=== PATIENT | female | born 1980 | race American Indian/Alaskan Native ===

== ENCOUNTER 2021-03-27 08:13 | Outpatient (CLI) | payer BC ==
--- NOTE | 2021-03-27 09:58 | Mammography Report ---
DIGITAL SCREENING MAMMOGRAM WITH TOMOSYNTHESIS WITH CAD, 03/27/2021 CLINICAL INFORMATION / INDICATION: Routine Screening Mammography. TECHNIQUE: Digital bilateral 2D and 3D mammography with tomosynthesis was obtained in the craniocaud al and mediolateral oblique projections. Computer-Aided Detection (CAD) analysis was used for interp retation of this study. COMPARISON: None available. FINDINGS: Breast Density: There are scattered areas of fibroglandular density. No dominant mass, suspicious calcifications, or architectural distortion in the right breast. An indeterminate nodular density is seen anteriorly in the left breast 1:00 position measuring 1.1 x 1.1 cm. No other significant abnormality of the left breast. IMPRESSION: Indeterminate left breast nodular density. A limited left breast ultrasound and possible diagnostic left mammogram with spot compression views is recommended for further evaluation. Follow up recommendation: Ultrasound BI-RADS Category 0: Incomplete. Needs additional imaging evaluation and/or prior mammograms for vanessa rison. A "normal" or negative report should not discourage follow up or biopsy of a clinically significant f inding. A written summary of these findings will be mailed to the patient. The patient will be entered into a mammography reporting system which will generate a reminder letter for the patient's next appointmen t at the appropriate interval. The [employer] recommends yearly mammograms starting at age 40 and continuing as l man as a woman is in good health. Breast MRI is recommended for women with an approximate 20-25% or greater lifetime risk of breast cancer, including women with a strong family history of breast or ova debo cancer or who have been treated for Hodgkin's disease. Signer Name: Nitin Castaneda MD Signed: 03/27/2021 9:53 AM Workstation Name: [id number]
== END 2021-03-27 08:14 | disposition home or self-care (01) ==
LOC: SPVWC 08:13
PROVIDERS: ATTEND Advanced Practice Midwife
DX: Z12.31 Encounter for screening mammogram for malignant neoplasm of breast (principal); N64.89 Other specified disorders of breast
CPT/HCPCS: 77063; 77067

== ENCOUNTER 2021-04-24 09:17 | Outpatient (CLI) | payer BC ==
--- NOTE | 2021-04-24 11:39 | Ultrasound Report ---
ULTRASOUND BREAST LEFT LIMITED, 04/24/2021 CLINICAL INFORMATION / INDICATION: Abnormal screening mammogram. Screening recall of the left breast for nodular density. TECHNIQUE: Targeted ultrasound evaluation was performed of the area of interest. COMPARISON: Screening mammogram, 03/27/2021 FINDINGS: Sonographic evaluation of the left breast at the 12:00 position 6 cm from the nipple demonstrates a h ypoechoic solid mass with indistinct margins measuring 0.9 x 0.8 cm. There is no significant associat ed vascularity. This corresponds to the density seen on the recent mammogram. Sonographic evaluation of the left axilla demonstrates a single lymph node with a grossly normal morp hology. IMPRESSION: 1. Solid left breast mass as described at the 12:00 position which is moderately suspicious for leticia ritter. Surgical consultation and ultrasound-guided biopsy are recommended. Follow up recommendation: Biopsy BI-RADS Category 4: Suspicious for Malignancy. A normal or "negative" report should not preclude biopsy or follow-up of a clinically suspicious find ing. Signer Name: Milly Hooks MD Signed: 04/24/2021 11:35 AM Workstation Name: [email or web address]
== END 2021-04-24 09:18 | disposition home or self-care (01) ==
LOC: SPVWC 09:17
PROVIDERS: ATTEND Advanced Practice Midwife
DX: N63.21 Unspecified lump in the left breast, upper outer quadrant (principal); N60.02 Solitary cyst of left breast